=== PATIENT | male | born 1990 | race Caucasian/White ===

== ENCOUNTER 2016-04-02 14:42 | Emergency (ER) | payer OTHER ==
[~2016-04-02] VITALS: Wt 89.0 kg
[~2016-04-02 14:42] MED LIST: DOCU-144 PO; HC30CR25 TOP; HYDR25SU24 PR
[2016-04-02] MEDS ORDERED: LIDOCAINE 1% (MDV) 20 ML INJ SC ONE (16:00)
[2016-04-02] MEDS ORDERED: CEPH-443 PO (16:11)
[2016-04-02] MEDS ORDERED: IBUP-1542 PO (16:14)
[2016-04-02] MEDS ORDERED: HYDROCODONE/APAP (5/325) TAB PO ONE (16:30)
[2016-04-02 16:56] VITALS: TEMP 98.1
--- NOTE | 2016-04-02 18:46 | ERD ---
ER Documentation Chief Complaint Date/Time DATE: 04/02/16 TIME: 15:30 Chief Complaint RIGHT MIDDLE FINGER PAIN AND SWELLING FOR THE PAST 3 DAYS HPI 25 y/o male presents to ED for right middle finger/medial swelling and tenderness. Pain was described as throbbing and nonradiating with a rate of 8/ 10. Patient stated this started about 2-3 days ago. Denies headache, loss of consciousness, dizziness, blurry vision, changes in vision, photophobia, facial pain, ear pain, throat pain, difficulty swallowing, neck pain, shoulder pain, chest pain, cough, hemoptysis, abdominal pain, back pain, loss of appetite, nausea, vomiting, hematochezia, diarrhea, constipation, urinary symptoms, bladder and bowel incontinences, extremity weakness, extremity tenderness, numbness or tingling sensation, trauma, difficulty walking , recent travel, recent exposure to illness, recent antibiotic use in the last 3 months, fever, chills. Allergy: NKA PMH: Denies Medications: Denies Surgery: Denies Family history: Denies Primary Social History: Right-handed. Works as a shipping company Admits that he is smoking medical marijuana. The last time he smoked was about a week ago. Denies smoking cigarettes, use of alcohol, use of illegal drugs. ROS All systems reviewed and are negative except as per history of present illness. Medications Home Meds Active Scripts Ibuprofen* (Motrin*) 600 Mg Tab, 600 MG PO Q6 Y for PAIN, #30 TAB Prov:PASILABAN,KLAR F 04/02/16 Cephalexin* (Keflex*) 500 Mg Capsule, 500 MG PO QID for 7 Days, CAP Prov:PASILABAN,KLAR F 04/02/16 Docusate Sodium* (Colace*) 100 Mg Capsule, 100 MG PO BID, #60 Prov:JOVI COX MD 11/08/14 Hydrocortisone* Topical (Hydrocortisone* Topical) 2.5%-28.3 Gm Cream..g., 1 APPLIC TOP BID for 14 Days, TUB ANUSOL HC CREAM Prov:JOVI COX MD 11/08/14 Hydrocortisone Acetate* (Anusol-HC*) 25 Mg/Supp.rect Supp.rect, 1 SUPP SC BID Y for HEMORROID PAIN/ITCHING, #12 SUPP.RECT Prov:JOVI COX MD 11/08/14 Allergies Allergies: Coded Allergies: No Known Allergy (Unverified , 11/08/14) PMhx/Soc Denies Medical and Surgical Hx: pt denies Medical Hx, pt denies Surgical Hx Hx Alcohol Use: No Hx Substance Use: No Hx Tobacco Use: No Smoking Status: Never smoker FmHx Denies Physical Exam Vitals Vital Signs Date Time Temp Pulse Resp B/P Pulse Ox O2 Delivery O2 Flow Rate FiO2 04/02/16 16:56 98.1 04/02/16 14:50 98.8 68 21 131/64 99 Physical Exam CONSTITUTIONAL: Well-appearing; well-nourished; in no apparent distress. HEAD: Normocephalic; atraumatic. EYES: Conjunctiva clear, sclera non-icteric, EOM intact. PERRL Ears: Hearing intact. EACs clear, TMs non-bulging, non-inflamed, translucent & mobile, ossicles normal appearance, No obstructions, no erythema, no discharges Nose: No obstructions. No polyps. No external lesions. Mucosa non-inflamed. No external lesions, septum and turbinates normal. No rhinorrhea. No discharges. Frontal sinus is non-tender to palpation. Maxillary sinus is non-tender to palpation. MOUTH: Moist mucous membranes, no lesion, no obstructions, no vesicles, no thrush, patent airway Throat: Uvula in midline. Right tonsil is +1 with no erythema, no exudate. Left tonsil is +1 with no erythema, no exudate. Tolerating secretions well. Good gag reflex. Patent airway. Neck: Supple, without lesions, bruits, or adenopathy. No mass. Thyroid non- enlarged and non-tender to palpation. CHEST: Symmetrical chest. Respirations even and not labored. No retractions noted. CARDIOVASCULAR: Normal S1, S2. RRR. No murmurs, gallops. RESPIRATORY: Normal chest excursion with respiration; breath sounds clear and equal bilaterally; no wheezes, rhonchi, or rales. Breathing even and unlabored. Speaking in clear, full, and complete sentences w/ ease. ABDOMEN: Normal bowel sounds normal. Soft, round, non-distended, non-guarding, no tenderness, no rebound, no organomegaly, no masses, no pulsating abdominal mass. No hernia. No peritoneal signs. : No CVA tenderness. BACK: Symmetrical shoulder. Spine is midline without deformity, tenderness. No evidence of trauma or deformity. PELVIS: Stable pelvis. No evidence of trauma or deformity. MUSCULOSKELETAL: Normal gait and station. No misalignment, asymmetry, crepitation, defects, tenderness, masses, effusions, decreased range of motion, instability, atrophy or abnormal strength or tone in the head, neck, spine, ribs , pelvis or extremities. No calf tenderness. NEUROVASCULAR: Distal pulses are present. Pedal pulse are present, equal, and normal. Capillary refills are < 2 seconds. NEUROLOGIC: Alert and oriented x4. Speaks full and clear sentences. Cranial Nerves II-XII normal. Sensation to pain, touch, and proprioception normal. Grossly unremarkable. No neurologic deficits. Romberg test is negative. PSYCHOLOGICAL: The patients mood and manner are appropriate. No hallucinations , delusions. Not SI. Not HI. Has the capacity to decide for self SKIN: Normal for age and ethnicity; warm; dry; good turgor; no apparent lesions or exudates. No rashes, hives, discoloration. Intact. Swelling, tenderness to right distal/middle finger/at the base of nail. There is full function of right middle finger (flexors/extensors with 5/5 score). No neurovascular deficits. Results 24 hrs Current Medications Medications (Trade) Dose Ordered Sig/Mishel Route PRN Reason Start Time Stop Time Status Last Admin Dose Admin Lidocaine (Xylocaine 1% (Mdv) 20 ml) 20 ml ONCE ONCE SC 04/02/16 16:00 04/02/16 16:01 DC Acetaminophen/ Hydrocodone Bitart ([place] (5/325)) 1 tab ONCE ONCE PO 04/02/16 16:30 04/02/16 16:31 DC 04/02/16 16:23 Procedures/MDM Examination: Unremarkable examination swelling, tenderness to right distal/ middle finger/at the base of nail. There is full function of right middle finger (flexors/extensors with 5/5 score). No neurovascular deficits. Case, treatment, follow-up care was discussed with supervising physician, Dr. Alan Sandy. He agreed with my treatment and follow-up care. Disease process, medical treatment was explained to the patient and family member. They verbalized understanding and agreed with the medical treatment, and follow-up care. Treatment: Right distal middle/long finger nail bed area was cleansed with saline and Betadine. Digital area was cleansed with Betadine. Lidocaine 1% 3 cc administration. Incision and drainage of paronychia -near the base of nail bed. Drained about 3-5 cc of mucopurulent discharge. Bacitracin applied. Dry dressing was applied. Re-evaluation: Patient tolerated well. Denies pain after the treatment/ procedure. Has full function of his right middle finger. No neurovascular deficits. Consultation: None Differential diagnosis: Paronychia versus cellulitis versus felon Medical decision makin25 y/o male presents to ED for right middle finger/ medial swelling and tenderness. Pain was described as throbbing and nonradiating with a rate of 8/10. Patient stated this started about 2-3 days. Patient's complaint as well as his history, my physical findings prior to and after my incision and drainage leads me to my final diagnosis of paronychia. Medications prescribed are the following: Keflex, Motrin Patient and family member are made aware of the side effects and adverse reactions of the medications prescribed. Instructed on when to seek emergent and medical attention in case allergic/anaphylactic reactions or severe side effects and or adverse reactions to medications. Patient and family member verbalized understanding. Patient instructed Instructed to follow-up with his PCP in 24-48 hours. Come back in the emergency room in 2-3 days for a wound check. Instructed to Call 911 for chest pain, shortness of breath. Advised to come back here in ED as soon as possible for severity of symptoms which includes but not limited to: any new symptoms; shortness of breath/difficulty of breathing; cardiovascular changes; severe gastrointestinal symptoms; signs and symptoms of bleeding and or infection; signs of compartment syndrome/neurovascular changes; neurological changes/deficits. Patient and family member verbalized understanding. Upon discharge, patient is alert and oriented x 4, speaks full and clear sentences, denies pain, has no neurological deficits, has no neurovascular deficits, difficulty of breathing. Breathing even and unlabored. Lung sounds are clear to auscultation. Not in distress. Appears comfortable. Ambulatory with steady gait. Appears satisfied with care provided here in ED. Departure Diagnosis: Primary Impression: Paronychia Laterality: right Qualified Code: L03.011 - Paronychia, right Condition: Good Patient Instructions: Paronychia Ref[facility]: [facility] Usted se tai hecho un examen mdico de control que le indica que no est en jerri condicin que requiera tratamiento urgente en el Departamento de Emergencia. Un estudio ms profundo y el tratamiento de villanueva condicin pueden esperar sin ningn riesgo hasta que usted sea atendida/o en el consultorio de villanueva mdico o jerri cl aisha. Es responsabilidad suya arreglar jerri arya para el seguimiento del singh. MANEJO DE CONDICIONES NO URGENTES EN EL FUTURO 1) Si usted tiene un mdico de atencin primaria: Usted debera llamar a villanueva mdico de atencin primaria antes de venir al departamento de emergencia. Despus de las horas de consultorio, villanueva doctor o villanueva asociado/a est disponible por telfono. El mdico o enfermero de david en el servicio telefnico puede asesorarle por shannon medio para atender el problema, o isngh contrario se puede programar jerri arya. 2) Si usted no tiene un mdico de atencin primaria: Llame al mdico o clnica de referencia que aparece abajo yasmine las horas de consultorio para hacer jerri arya para que le vean. CLINICAS: [facility] [phone] [facility] [phone] [facility] [phone] [facility] [phone] [facility]. [place] [phone] [facility] [phone] [address] [facility]. [facility] YOU HAVE RECEIVED A MEDICAL SCREENING EXAM AND THE RESULTS INDICATE THAT YOU DO NOT HAVE A CONDITION THAT REQUIRES URGENT TREATMENT IN THE EMERGENCY DEPARTMENT. FURTHER EVALUATION AND TREATMENT OF YOUR CONDITION CAN WAIT UNTIL YOU ARE SEEN IN YOUR DOCTORS OFFICE WITHIN THE NEXT 1-2 DAYS. IT IS YOUR RESPONSIBILITY TO MAKE AN APPOINTMENT FOR FOLOW-UP CARE. IF YOU HAVE A PRIMARY DOCTOR --you should call your primary doctor and schedule an appointment IF YOU DO NOT HAVE A PRIMARY DOCTOR YOU CAN CALL OUR PHYSICIAN REFERRAL HOTLINE AT IF YOU CAN NOT AFFORD TO SEE A PHYSICIAN YOU CAN CHOSE FROM THE FOLLOWING [facility] [address] [facility] [address] [facility] [facility] [address] [facility] [address] [facility] [address] [facility] [facility]. [address] Additional Instructions: Follow-up with PCP in 24-48 hours. Come back in 2 days for a wound check. ABNER MINAYA Apr 02, 2016 18:45
== END 2016-04-02 16:57 | disposition home or self-care (01) ==
LOC: FTE 14:42
DX: L03.011 Cellulitis of right finger (principal)